=== PATIENT | male | born 1955 | race Two or more races ===

== ENCOUNTER 2024-07-30 06:29 | Day surgery (SDC) | payer MEDICARE, MEDICAID ==
[2024-07-30] VITALS (7 sets, daily range): BP systolic 112–141; BP diastolic 57–67; PULSE 58–68; RESP 13–16; TEMP 97.8; O2SAT 91–98
[~2024-07-30] VITALS: Ht 175.3 cm; Wt 99.8 kg
[~2024-07-30 06:29] MED LIST: APIX5TAB PO; ATOR80TA PO; BUPRTAB PO; CHOL20007 PO; CYAN1TAB11 SL; DULO60CA41 PO; FINA5TAB4 PO; GABA-1250 PO; LEVO25TA6 PO; MAGN64TA5 PO; METO25TA36 PO; PANT40TA57 PO; TAMS-35 PO; TIRZ10IN2 SC
[2024-07-30] MEDS ORDERED: IODIXANOL 320MG/ML 100ML BTL IV ONE ×3 (07:40→09:25)
[2024-07-30] MEDS ORDERED: HEPARIN SODIUM (PORCINE) 5000 UNITS/ML 1ML VIAL ONE (08:21)
[2024-07-30] MEDS ORDERED: VERAPAMIL 2.5MG/ML INJ 2ML VIAL IV ONE (08:21)
[2024-07-30] MEDS ORDERED: ANGIOMAX 250 MG VIAL IV ONE (08:21)
[2024-07-30] MEDS ORDERED: MIDAZOLAM HCL 2MG/2ML 2ml VIAL (1mg/ml) ONE (08:22)
[2024-07-30] MEDS ORDERED: LIDOCAINE 2%HCL (LOCAL ANESTH.) INJ 20ML MDV ONE (08:22)
[2024-07-30] MEDS ORDERED: fentaNYL CITRATE 100 MCG/2 ML VL ONE (08:22)
[2024-07-30] MEDS ORDERED: SODIUM CHL 0.9% 0 ML ONE (08:22)
[2024-07-30 08:23] LABS: Basophils # (auto) 0.1 10 ^3/uL (0-0.2); Basophils % (auto) 0.8 % (0.0-2.0); Eosinophils # (auto) 0.1 10 ^3/uL (0-0.8); Eosinophils % (auto) 1.3 % (0.0-7.0); Hematocrit 39.5 % (41.0-53.0); Hemoglobin 13.2 g/dL (13.5-17.5); Lymphocytes # (auto) 2.7 10 ^3/uL (0.4-5.4); Lymphocytes % (auto) 30.5 % (10.0-50.0); Mean Corpuscular Hemoglobin 27.3 pg (28.0-32.0); Mean Corpuscular Hgb Conc. 33.3 g/dL (32.0-36.0); Mean Corpuscular Volume 81.9 fL (80.0-100.0); Monocytes # (auto) 0.6 10 ^3/uL (0-1.3); Monocytes % (auto) 7.2 % (0.0-12.0); Neutrophils # (auto) 5.4 10 ^3/uL (1.6-8.6); Neutrophils % (auto) 60.2 % (37.0-80.0); Nucleated Red Blood Cells % 0.1 %; Platelet Count (auto) 192 10^3/uL (140-450); Red Blood Cells 4.82 10^6/uL (4.5-5.90); Red Cell Distribution Width 17.8 % (11.8-14.3); White Blood Cell 8.9 10^3/uL (4.4-10.8)
--- NOTE | 2024-07-30 10:11 | DVHOP2 ---
Operative Report Procedures performed: Left heart catheterization and bilateral coronary angiogram Bypass Angiography Ascending Aortogram Moderate Sedation (lasting more than 45 minutes) Diagnosis: Multivessel kashia Coronary Artery Disease (significant left main disease, LAD was KNIFER UP at its ostium, severe LCX disease, RCA was KNIFER UP at proximal RCA) Patent CAVAZOS to LAD with jump to Diagonal Patent SVG to Obtuse Marginals Patent SVG to RPDA LVEF of 60% Cardiac suggestions for management: Optimized medical therapy Long-term continuation of aspirin/high potency statin/antianginals Lifestyle and risk factor modifications Findings: LVEF: 60% LVEDP: 15 mm Hg There was no transaortic valve pressure gradient Left main: Left main was coming off the left sinus of Valsalva. There was 90% ostial disease with 85% distal left main disease. LAD: LAD was coming off the left main. It would KNIFER UP at its ostium. It was nourished via patent CAVAZOS with jump to diagonal. Chitina LAD and diagonals have diffuse disease. LCX: LCX was coming off the left main. LCX territory was mostly nourished via patent SVG to OM1 which had jump to 2nd OM also. RCA: RCA was coming off the right sinus of Valsalva. It was a dominant vessel and originally provided RPDA. RCA was KNIFER UP at proximal section of RCA. RCA territory was nourished via a patent SVG to RPDA. CAVAZOS to LAD with jump to diagonal was patent. The CAVAZOS vessel was tortuous but without any significant disease. SVG to obtuse marginal1 with jump to obtuse marginal2 was patent with no significant disease. SVG to RPDA was patent with no significant disease. Presentation: Patient is a 69-year-old gentleman with history of coronary artery disease and status post Coronary bypass grafting, diabetes mellitus, hypertension, hyperlipidemia, hypothyroidism, GERD, osteoarthritis, peripheral neuropathy, hypothyroidism, dementia, BPH, morbid obesity and status post cholecystectomy. He also has had multiple CVAs. He presented with dyspnea on exertion to the office. Echocardiogram of June 2024 revealed preserved left ventricular systolic function, mild MR/TR and aortic root of 4.1 centimeter. Right ventricular systolic pressure was less than 35 mm Hg. Nuclear stress test of May 2024 was abnormal and the patient was sent for cardiac catheterization. Procedure: After obtaining informed consent, the patient was brought to the [facility]. He was prepped and draped in sterile fashion. 2 mg of Versed and 100 mcg of fentanyl were used for moderate sedation (lasting more than 45 minutes). At 1st we used the left radial artery for access. Using modified Seldinger technique, the left radial artery was accessed and six Lebanese slender sheath was inserted into it. 2.5 mg of verapamil and 100 mcg of nitroglycerin were given has a cocktail into the left radial artery. 5000 units of heparin was given peripherally. A six Lebanese JR4 diagnostic catheter was used to perform right coronary angiography, SVG angiography to RPDA, SVG angiography to obtuse margin als and CAVAZOS angiography to LAD/diagonals. A six Lebanese pigtail catheter was used to perform left heart catheterization (obtaining pressures and performing left ventriculography) and Ascending Aortic Angiography. We did use many different catheters to access the left coronary system (JL4, JL 3.5, JL 4.5 and AL2 diagnostic catheter) via left radial access unsuccessfully. At this point, the patient did experience left radial artery spasm prohibiting further continuation of procedure. We decided to abandon left radial access. Using modified Seldinger technique and a micropuncture, the right femoral artery was accessed. After angiographically proving a good access point, the micropuncture sheath was exchanged over a wire to a six Lebanese femoral sheath. Using formal access and JL4 diagnostic catheter, we could access the left coronary system and left coronary angiography was performed successfully. We did recognize the multivessel kashia coronary artery disease. We did observe patent grafts. There was no indication for any transcatheter revascularization and decision was made to manage the patient medically. There was no dissect ion/hematoma/perforation. Patient tolerated the procedure with no complication. Total bleeding was less than 20 mL. Right femoral artery access site was managed by deploying an Angio-Seal device. The left radial artery access site was managed by deploying a TR band. Fluoroscopy time: 18.9 minutes contrast: 195 mL of GILMAR De Luna MD Jul 30, 2024 10:11
== END 2024-07-30 12:35 | disposition home or self-care (01) ==
LOC: CATH 06:29
PROVIDERS: ATTEND Internal Medicine Cardiovascular Disease
DX: R94.39 Abnormal result of other cardiovascular function study (principal); I25.10 Atherosclerotic heart disease of native coronary artery without angina pectoris; E11.42 Type 2 diabetes mellitus with diabetic polyneuropathy; E66.01 Morbid (severe) obesity due to excess calories; E78.5 Hyperlipidemia, unspecified; F03.90 Unspecified dementia, unspecified severity, without behavioral disturbance, psychotic disturbance, mood disturbance, and anxiety; I10 Essential (primary) hypertension; Z79.82 Long term (current) use of aspirin; Z86.73 Personal history of transient ischemic attack (TIA), and cerebral infarction without residual deficits; Z90.49 Acquired absence of other specified parts of digestive tract; Z95.1 Presence of aortocoronary bypass graft; Z79.899 Other long term (current) drug therapy; Z98.890 Other specified postprocedural states
CPT/HCPCS: 36415; 85025; 93459; C1760; C1769; C1894; J1644; J2250; J3010; Q9967; 99152; 99153